=== PATIENT | male | born 1995 ===

== ENCOUNTER 2020-04-16 21:32 | Emergency (ER) | payer BC ==
[2020-04-16] MEDS ORDERED: Ketorolac 15 MG/ML SDV IVPUSH ONE (21:55)
[2020-04-16] MEDS ORDERED: Sodium Chloride 0.9% 2.5 ML Syringe FLUSH PRN (21:55)
[2020-04-16] MEDS ORDERED: Sodium Chloride 0.9% 10 ML Syringe FLUSH PRN (21:55)
[2020-04-16] MEDS ORDERED: Ondansetron 4 MG/2 ML SDV IVPUSH ONE (22:07)
--- NOTE | 2020-04-16 22:12 | EDM.PDOC ---
ED HPI GENERAL MEDICAL PROBLEM - General Chief Complaint: Chest Pain Stated Complaint: TIGHTNESS IN CHEST Time Seen by Provider: 04/16/20 21:49 - History of Present Illness INITIAL COMMENTS - FREE TEXT/NARRATIVE: HISTORY AND PHYSICAL: History of present illness: This is a 25-year-old gentleman with no significant past medical history for hypertension, diabetes, liver, lung, kidney problems who presents the ER today complaining of left-sided chest pain that is been intermittent for approximately 1 week. Patient reports nausea associated with the discomfort, no diaphoresis, no shortness of breath, mild discomfort to his left neck. 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 Patient denies any history of hypertension, diabetes, family history of coronary artery disease at young age, tobacco use, cholesterol. Patient reports that the pain at times feels dull and at times feels sharp in nature. Patient reports no exacerbation with exertion, deep inspiration, cough, meals, position. Patient reports that he is able to walk several miles a day without discomfort in his chest. Patient denies any hemoptysis. Patient has any recent fevers, shakes, chills, nausea, vomiting, diarrhea, dysuria, frequency, urgency. Patient reports that he had similar symptoms in the past year. Patient does report occasional episodes of abdominal pain associated with his nausea. Patient present the pain is occasionally in th e midepigastric region. Review of systems: As per history of present illness and below otherwise all systems reviewed and negative. Past medical history: As per history of present illness and as reviewed below otherwise noncontributory. Surgical history: As per history of present illness and as reviewed below otherwise noncontributory. Social history: No reported history of drug or alcohol abuse. Family history: As per history of present illness and as reviewed below otherwise noncontributory. Physical exam: HEENT: Atraumatic, normocephalic, pupils reactive, negative for conjunctival pallor or scleral icterus, mucous membranes moist, throat clear, neck supple, nontender, trachea midline. Lungs: Clear to auscultation, breath sounds equal bilaterally, chest nontender. Heart: S1S2, regular, negative for clicks, rubs, or JVD. Abdomen: Soft, nondistended, nontender. Negative for masses or hepatosplenomegaly. Negative for costovertebral tenderness. Pelvis: Stable nontender. Genitourinary: Deferred. Rectal: Deferred. Extremities: Atraumatic, negative for cords or calf pain. Neurovascular unremarkable. Neuro: Awake, alert, oriented. Cranial nerves II through XII unremarkable. Ce rebellum unremarkable. Motor and sensory unremarkable throughout. Exam nonfocal. Diagnostics: CBC, CMP, chest x-ray, troponin, d-dimer all within normal limits. Chest Xray: Normal cardiac silhouette No infiltrates or effusions identified. No PTX No evidence of acute bony fracture. As interpreted by ER MD: Adan EKG: Normal sinus rhythm heart rate of [address]-T wave abnormalities Normal axis No evidence of ST elevation WI. Patient with early repolarization abnormalities on EKG. As interpreted by ER physician: [employer]: Toradol 15 mg IV, Zofran 4 mg IV Assessment and plan: Atypical chest pain. Etiology unclear. Patient is extremely low risk for cardiac etiology of his discomfort. I have recommended for the patient that he follow-up with his doctor for further evaluation of his chest discomfort if it should recur. Patient currently reports that the pain has resolved in the ED. Patient reports that occasional twinges of left-sided sharp chest pain. Heart Score: History: 0 (2, Highly Suspicious; 1, Moderate Suspicious; 0: Slightly Suspicious) EK (2, Significant ST depression; 1: Non specific repolarization disturbance; 0, Normal) Age: 0 (2, = 65; 1: 45-65; 0, =45) Risk factors: 0 (2, =3 risk factors or history of atherosclerotic disease; 1, 1-2 risk factors; 0, no risk factors) Risk Factors include hypercholesterolemia, HTN, DM, smoking, family history, obesity Troponin: 0 (2, (=3x normal limit; 1, 1-3 x normal limit; 0 = normal limit) Total Heart Score: 1 Management Scores 0-3: 0.9-1.7% risk of adverse cardiac event. In the HEART Score study, these patients were discharged (0.99% in the retrospective study, 1.7% in the prospective study) Scores 4-6: 12-16.6% risk of adverse cardiac event. In the HEART Score study, these patients were admitted to the hospital. (11.6% retrospective, 16.6% prospective) Scores =7: 50-65% risk of adverse cardiac event. In the HEART Score study, these patients were candidates for early invasive measures. (65.2% retrospective, 50.1% prospective) Definitive disposition and diagnosis as appropriate pending reevaluation and review of above. chest area Pain Score (Numeric/FACES): 7 - Related Data Allergies Allergy/AdvReac Type Severity Reaction Status Date / Time No Known Allergies Allergy Verified 04/16/20 21:50 Home Meds: Home Meds . 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 Hematologic History: Reports: None Immunologic History: Reports: None Oncologic (Cancer) History: Reports: None Dermatologic History: Reports: None - Infectious Disease History Infectious Disease History: Reports: None - Past Surgical History Head Surgeries/Procedures: Reports: None Musculoskeletal Surgical History: Reports: Other (See Below) Other Musculoskeletal Surgeries/Procedures:: Hand Surgery Social & Family History - Family History Family Medical History: Noncontributory - Tobacco Use Smoking Status *Q: Never Smoker - Recreational Drug Use Recreational Drug Use: No ED ROS GENERAL - Review of Systems Review Of Systems: See Below ED EXAM, GENERAL - Physical Exam Exam: See Below Course - Vital Signs Last Recorded V/S: Last Vital Signs Temp 98.8 F 04/16/20 21:45 Pulse 64 04/16/20 22:50 Resp 16 04/16/20 22:50 BP 126/74 04/16/20 22:50 Pulse Ox 98 04/16/20 22:50 - Orders/Labs/Meds Orders: Active Orders 24 hr Category Date Time Status EKG 12 Lead [EKG Documentation Completion] [RC] STAT Care 04/16/20 21:53 Active Sodium Chloride 0.9% [Saline Flush] Med 04/16/20 21:55 Active 10 ml FLUSH ASDIRECTED PRN Sodium Chloride 0.9% [Saline Flush] Med 04/16/20 21:55 Active 2.5 ml FLUSH ASDIRECTED PRN Saline Lock Insert [OM.PC] Stat Oth 04/16/20 21:55 Ordered Medication Orders Sodium Chloride (Saline Flush) 10 ml FLUSH ASDIRECTED PRN PRN Reason: Keep Vein Open Sodium Chloride (Saline Flush) 2.5 ml FLUSH ASDIRECTED PRN PRN Reason: Keep Vein Open Labs: Laboratory Tests 04/16/20 04/16/20 04/16/20 Range/Units 21:58 21:58 21:58 WBC 9.53 (4.0-11.0) K/uL RBC 5.12 (4.50-5.90) M/uL Hgb 14.1 (13.0-17.0) g/dL Hct 42.9 (38.0-50.0) % MCV 83.8 (80.0-98.0) fL MCH 27.5 (27.0-32.0) pg MCHC 32.9 (31.0-37.0) g/dL RDW Std Deviation 42.2 (28.0-62.0) fl RDW Coeff of [place] 14 (11.0-15.0) % Plt Count 317 (150-400) K/uL MPV 9.40 (7.40-12.00) fL Neut % (Auto) 63.4 (48.0-80.0) % Lymph % (Auto) 26.7 (16.0-40.0) % [place] % (Auto) 8.6 (0.0-15.0) % Eos % (Auto) 1.0 (0.0-7.0) % Baso % (Auto) 0.3 (0.0-1.5) % Neut # (Auto) 6.0 H (1.4-5.7) K/uL Lymph # (Auto) 2.5 H (0.6-2.4) K/uL [place] # (Auto) 0.8 (0.0-0.8) K/uL Eos # (Auto) 0.1 (0.0-0.7) K/uL Baso # (Auto) 0.0 (0.0-0.1) K/uL Nucleated RBC % 0.0 /100WBC Nucleated RBCs # 0 K/uL D-Dimer, Quantitative 0.19 (0.0-0.50) mg/L FEU Sodium 140 (136-148) mmol/L Potassium 3.8 (3.5-5.1) mmol/L Chloride 103 (98-107) mmol/L Carbon Dioxide 27.4 (21.0-32.0) mmol/L BUN 10 (7.0-18.0) mg/dL Creatinine 1.1 (0.8-1.3) mg/dL Est Cr Clr Drug Dosing 95.14 mL/min Estimated GFR (MDRD) > 60.0 ml/min Glucose 102 (74-106) mg/dL Calcium 9.1 (8.5-10.1) mg/dL Total Bilirubin 0.5 (0.2-1.0) mg/dL AST 17 (15-37) IU/L ALT 21 (14-63) IU/L Alkaline Phosphatase 73 (46-116) U/L Troponin I < 0.050 (0.000-0.056) ng/mL Total Protein 7.8 (6.4-8.2) g/dL Albumin 4.3 (3.4-5.0) g/dL Globulin 3.5 (2.6-4.0) g/dL Albumin/Globulin Ratio 1.2 (0.9-1.6) Meds: Medications Generic Name Dose Route Start Last Admin Trade Name Freq PRN Reason Stop Dose Admin Sodium Chloride 10 ml 04/16/20 21:55 Saline Flush FLUSH ASDIRECTED PRN Keep Vein Open Sodium Chloride 2.5 ml 04/16/20 21:55 Saline Flush FLUSH ASDIRECTED PRN Keep Vein Open Discontinued Medications Generic Name Dose Route Start Last Admin Trade Name Freq PRN Reason Stop Dose Admin Ketorolac Tromethamine 15 mg 04/16/20 21:55 04/16/20 22:13 Toradol IVPUSH 04/16/20 21:56 15 mg ONETIME ONE Administration Ondansetron HCl 4 mg 04/16/20 22:07 04/16/20 22:14 Zofran IVPUSH 04/16/20 22:08 4 mg ONETIME ONE Administration Departure - Departure Time of Disposition: 23:12 Disposition: Home, Self-Care 01 Condition: Good Clinical Impression: Atypical chest pain - Discharge Information Instructions: Nonspecific Chest Pain, Adult Referrals: PCP,Not In Area [Primary Care Provider] - Forms: ED Department Discharge Additional Instructions: You were seen in the ER today for your chest pain. The etiology of your pain is unclear at this time but your work-up in the emergency department has been normal. Your EKG, lab tests, as well as your chest x-ray did not reveal any abnormalities. Please make an appointment to follow-up with your doctor for further evaluation of this pain returns. The following information is given to patients seen in the emergency department who are being discharged to home. This information is to outline your options for follow-up care. We provide all patients seen in our emergency department with a follow-up referral. The need for follow-up, as well as the timing and circumstances, are variable depending upon the specifics of your emergency department visit. If you don't have a primary care physician on staff, we will provide you with a referral. We always advise you to contact your personal physician following an emergency department visit to inform them of the circumstance of the visit and for follow-up with them and/or the need for any referrals to a consulting specialist. The emergency department will also refer you to a specialist when appropriate. This referral assures that you have the opportunity for follow-up care with a specialist. All of these measure are taken in an effort to provide you with optimal care, which includes your follow-up. Under all circumstances we always encourage you to contact your private physician who remains a resource for coordinating your care. When calling for follow-up care, please make the office aware that this follow-up is from your recent emergency room visit. If for any reason you are refused follow-up, please contact the [facility] Emergency Department at and asked to speak to the emergency department charge nurse. Sepsis Event Note (ED) - Evaluation Sepsis Screening Result: No Definite Risk - Focused Exam Vital Signs: Vital Signs Temp Pulse Resp BP Pulse Ox 04/16/20 22:50 64 16 126/74 98 04/16/20 21:45 98.8 F 67 18 126/74 98 - My Orders Last 24 Hours: My Active Orders 04/16/20 21:53 EKG 12 Lead [EKG Documentation Completion] [RC] STAT 04/16/20 21:55 Sodium Chloride 0.9% [Saline Flush] 10 ml FLUSH ASDIRECTED PRN Sodium Chloride 0.9% [Saline Flush] 2.5 ml FLUSH ASDIRECTED PRN Saline Lock Insert [OM.PC] Stat - Assessment/Plan Last 24 Hours: My Active Orders 04/16/20 21:53 EKG 12 Lead [EKG Documentation Completion] [RC] STAT 04/16/20 21:55 Sodium Chloride 0.9% [Saline Flush] 10 ml FLUSH ASDIRECTED PRN Sodium Chloride 0.9% [Saline Flush] 2.5 ml FLUSH ASDIRECTED PRN Saline Lock Insert [OM.PC] Stat
--- NOTE | 2020-04-16 22:28 | CR ---
Chest: 2 views of the chest were obtained. Comparison: No prior chest imaging is available. Heart size and mediastinum are normal. Lungs are clear with no acute parenchymal change. No acute osseous finding is seen. Impression: 1. Nothing acute is appreciated on 2 view chest x-ray. Diagnostic code #1 This report was dictated in MDT
[2020-04-16 22:36] LABS: BLOOD UREA NITROGEN,BUN 10 mg/dL (7.0-18.0); CARBON DIOXIDE,CO2 27.4 mmol/L (21.0-32.0); CHLORIDE,CL 103 mmol/L (98-107); GLUCOSE RANDOM 102 mg/dL (74-106); POTASSIUM,K 3.8 mmol/L (3.5-5.1); SODIUM,NA 140 mmol/L (136-148)
== END 2020-04-16 23:39 | disposition home or self-care (01) ==
LOC: MW.ED 21:32
DX: R07.89 Other chest pain (principal); R11.0 Nausea; R10.13 Epigastric pain
CPT/HCPCS: 36415; 71046; 80053; 84484; 85025; 85379; 93005; 96374; 96375; 99285; J1885; J2405; 99284